=== PATIENT | male | born 1935 | race Caucasian/White ===

== ENCOUNTER 2020-11-02 14:23 | Emergency (ER) | payer MEDICARE, OTHER ==
[2020-11-02 14:40] VITALS: BP 134/62; PULSE 70
--- NOTE | 2020-11-02 15:33 | EDM.PDOC ---
ED HPI GENERAL MEDICAL PROBLEM - General Stated Complaint: BAD NECK PAIN Time Seen by Provider: 11/02/20 14:33 Source of Information: Reports: Patient, Family (dtr) History Limitations: Reports: No Limitations - History of Present Illness INITIAL COMMENTS - FREE TEXT/NARRATIVE: Patient presents with sharp pain in right posterior neck that has been building for about 5 days but is worse the last couple hours. He wonders if it is coming from his ear. Right Neck Pain Score (Numeric/FACES): 8 - Related Data Allergies Allergy/AdvReac Type Severity Reaction Status Date / Time No Known Drug Allergies Allergy Cannot Verified 11/02/20 14:40 Remember Home Meds: Home Meds Levothyroxine 112 mcg PO ACBREAKFAST 09/15/16 [History] Simvastatin [Zocor] 20 mg PO BEDTIME 09/15/16 [History] Zolpidem Tartrate [Ambien] 10 mg PO BEDTIME 09/15/16 [History] atenoloL [Atenolol] 25 mg PO DAILY 09/15/16 [History] metFORMIN HCl [Metformin HCl] 1,000 mg PO BIDMEALS 09/15/16 [History] metFORMIN [Glucophage] 500 mg PO DAILY@1200 09/15/16 [History] Past Medical History - Past Surgical History Male Surgical History: Reports: Prostate Biopsy Social & Family History - Tobacco Use Tobacco Use Status *Q: Current Every Day Tobacco User Years of Tobacco use: 13 Packs/Tins Daily: 0.1 - Caffeine Use Caffeine Use: Reports: Coffee - Alcohol Use Days Per Week of Alcohol Use: 2 Number of Drinks Per Day: 2 Total Drinks Per Week: 4 - Recreational Drug Use Recreational Drug Use: No ED ROS GENERAL - Review of Systems Review Of Systems: See Below Constitutional: Denies: Fever, Chills, Malaise, Weakness HEENT: Denies: Ear Pain, Throat Pain, Vision Change (nothing acute) Respiratory: Denies: Shortness of Breath, Cough Cardiovascular: Denies: Chest Pain, Lightheadedness, Syncope GI/Abdominal: Denies: Abdominal Pain, Diarrhea, Vomiting : Denies: Dysuria, Flank Pain Musculoskeletal: Reports: Neck Pain. Denies: Shoulder Pain, Arm Pain, Back Pain, Hand Pain Skin: Denies: Cyanosis, Jaundice, Mottled, Pallor, Diaphoresis Neurological: Denies: Confusion, Dizziness, Headache, Seizure, Syncope, Trouble Speaking, Difficulty Walking Psychiatric: Denies: Agitation, Anxiety, Confusion ED EXAM, UPPER BACK/NECK PAIN - Physical Exam Exam: See Below Exam Limited By: No Limitations General Appearance: Alert, WD/WN, No Apparent Distress Eye Exam: Bilateral Eye: EOMI, Normal Inspection, PERRL Ears Exam: Normal External Exam, Normal Canal, Hearing Grossly Normal, Normal TMs Nose Exam: Normal Inspection, No Blood Throat/Mouth Exam: Normal Inspection, Normal Voice, No Airway Compromise Head Exam: Atraumatic, Normocephalic Neck Exam: Normal Alignment, Limited Range of Motion (can't rotate head more than 10 degrees to right without pain), Painful Range of Motion (only to the rig ht), Paraspinous Muscle Tender (right posterior muscle spasm and tenderness to palpation), Tenderness. No: Spinous Processes Tender Cardiovascular/Respiratory: Regular Rate, Rhythm, Normal Breath Sounds, No Respiratory Distress GI/Abdominal: Normal Bowel Sounds, Soft, Non-Tender, No Organomegaly, No Distention Back Exam: Normal Inspection, Full Range of Motion. No: CVA Tenderness (L), CVA Tenderness (R) Extremities: Normal Inspection, Normal Range of Motion, Non-Tender Neurologic: No Motor/Sensory Deficits, Alert, Normal Mood/Affect, Oriented x 3 Psychiatric: Normal Affect, Normal Mood Skin Exam: Normal Color, Warm/Dry Lymphatic: No Adenopathy (cervical) Course - Vital Signs Last Recorded V/S: Last Vital Signs Temp 96.7 F L 11/02/20 14:34 Pulse 70 11/02/20 14:34 Resp 18 11/02/20 14:34 BP 134/62 11/02/20 14:34 Pulse Ox 96 11/02/20 14:34 - Re-Assessments/Exams Free Text/Narrative Re-Assessment/Exam: 11/02/20 16:15 I discussed findings and recommendations with patient and his daughter. He was given one tablet of Cyclobenzaprine 5 mg to take at home and a Rx for 5 mg #14 to take qhs prn spasm. We discussed follow up with PCP if not improving and possibly PT. Pt discharged to home in stable condition. Departure - Departure Time of Disposition: 15:50 Disposition: Home, Self-Care 01 Condition: Good Clinical Impression: Neck muscle spasm - Discharge Information Instructions: Muscle Cramps and Spasms, [id number] Referrals: Sharmila Paul PA-C [Primary Care Provider] - Additional Instructions: Drink 8 cups of water daily. Take the Cyclobenzaprine (Flexeril) muscle relaxant as directed. You can take Ibuprofen 400-600 mg 2-3 times a day as needed for pain also. Follow up with your PCP in 2-3 days if this isn't improving. Physical Therapy may be helpful at that point. Sepsis Event Note (ED) - Evaluation Sepsis Screening Result: No Definite Risk - Focused Exam Vital Signs: Vital Signs Temp Pulse Resp BP Pulse Ox 11/02/20 14:34 96.7 F L 70 18 134/62 96
[2020-11-02] MEDS: Cyclobenzaprine 5 MG Tab PO PRN (16:10)
== END 2020-11-02 16:17 | disposition home or self-care (01) ==
LOC: KA.ED 14:23
DX: M62.838 Other muscle spasm (principal); F17.210 Nicotine dependence, cigarettes, uncomplicated
CPT/HCPCS: 99283; A9270-GY